=== PATIENT | male | born 1975 | race Caucasian/White ===

== ENCOUNTER 2018-01-27 06:09 | Day surgery (SDC) | payer OTHER ==
[2018-01-27] MEDS ORDERED: PROPOFOL 40 ML (07:45)
== END 2018-01-27 10:38 | disposition home or self-care (01) ==
LOC: GIL 06:09
DX: K29.50 Unspecified chronic gastritis without bleeding (principal); R63.4 Abnormal weight loss
CPT/HCPCS: 43239; 88305; 88312

== ENCOUNTER 2018-11-03 10:50 | Day surgery (SDC) | payer OTHER ==
[2018-11-03] MEDS ORDERED: FENTAnyl 50 MCG/ML VIAL (11:46)
[2018-11-03] MEDS ORDERED: MIDAZOLAM 1 MG/ML 2 ML INJ ×3 (11:46→11:47)
== END 2018-11-03 12:18 | disposition home or self-care (01) ==
LOC: GIL 10:50
DX: K59.00 Constipation, unspecified (principal); R63.4 Abnormal weight loss
CPT/HCPCS: 45378